=== PATIENT | female | born 1990 | race Caucasian/White ===

== ENCOUNTER → 2018-04-01 | Outpatient (CLI) | payer OTHER ==
--- NOTE | 2018-04-01 12:03 | DIAGNOSTIC IMAGING REPORT ---
LEFT KNEE RADIOGRAPHS WITH COMPARISON STANDING AP RADIOGRAPH OF THE RIGHT KNEE CLINICAL HISTORY: Left knee pain. COMPARISON: None FINDINGS: Comparison standing AP radiograph of the right knee demonstrates no abnormality. There are postoperative findings consistent with a left ACL reconstruction. A transverse screw within the proximal metadiaphysis of the left tibia is noted. There is no acute fracture or joint effusion. Joint spaces are preserved. IMPRESSION: 1. No acute fracture or joint effusion of the left knee. 2. Status post left ACL reconstruction. Electronically signed by: Manoj Peña M.D. 04/01/2018 12:01 PM Dictated Date/Time: 04/01/2018 12:00 PM
== END | disposition home or self-care (01) ==
LOC: C.RDSM 09:49
PROVIDERS: ATTEND Physician Assistant
DX: M25.562 Pain in left knee (principal)